=== PATIENT | female | born 1970 | race Caucasian/White ===

== ENCOUNTER → 2021-04-25 | Day surgery (SDC) | payer BC ==
[~2021-04-25] MED LIST: ALLERGY RELIEF5 MG PO; ANAPROX DS550 MG PO; BACTRIM DS TAB1 EACH PO; HYDROCHLOROTHIA25 MG PO; NAPROSYN500 MG PO; SYNTHROID175 MCG PO; TYLENOL325 MG PO
[2021-04-25 05:55] LABS: HEMOGLOBIN 13.6 gm/dl (12.3-15.3); RED BLOOD COUNT 4.39 M/UL (4.00-5.10); WHITE BLOOD COUNT 12.1 K/UL (4.5-11.0)
== END | disposition home or self-care (01) ==
LOC: OR 05:17
PROVIDERS: Obstetrics & Gynecology
DX: N92.1 Excessive and frequent menstruation with irregular cycle (principal); S37.69XA Other injury of uterus, initial encounter; E03.9 Hypothyroidism, unspecified; N85.00 Endometrial hyperplasia, unspecified; Z20.822 Contact with and (suspected) exposure to COVID-19; I49.9 Cardiac arrhythmia, unspecified; I10 Essential (primary) hypertension; E66.01 Morbid (severe) obesity due to excess calories; Z68.34 Body mass index [BMI] 34.0-34.9, adult
CPT/HCPCS: 81001; 84702; 85025; 93005; J0690; J1100; J1885; J2001; J2250; J2405; J2704; J3010; J7030; J7120